=== PATIENT | male | born 1965 | race Caucasian/White ===

== ENCOUNTER 2021-07-07 10:34 | Inpatient (IN) | payer OTHER ==
[2021-07-07 11:38] LABS: Urine Blood Trace-intact (Negative); Urine Glucose Negative (Negative); Urine Protein 2+ (Negative); Urine Specific Gravity 1.025 (1.005-1.030); Urine pH 6.5 (5.0-7.0)
[2021-07-07] MEDS ORDERED: ONDANSETRON 4 MG/2 ML VIAL ONE ×2 (12:16→12:17)
[2021-07-07] MEDS ORDERED: MORPHINE 4 MG/ML SYR ONE ×2 (12:16→15:27)
[2021-07-07 12:19] LABS: Absolute Lymphocytes (CBC) 1.7 K/uL (0.7-4.9); Basophils % 0.3 % (0-1.3); Hematocrit 45.6 % (39.6-49.0); Lymphocytes % 13.3 % (15.3-44.8); MPV 8.1 fL (7.6-11.3); RBC Red Blood Cell Count 5.53 M/uL (4.33-5.43)
--- NOTE | 2021-07-07 12:23 | RAD REPORT ---
EXAM DESCRIPTION: CTAbdomen Pelvis W Contrast - 07/07/2021 12:12 pm CLINICAL HISTORY: Abdominal pain. ABD PAIN COMPARISON: No comparisons TECHNIQUE: Biphasic CT imaging of the abdomen and pelvis was performed with 100 ml non-ionic IV cont rast. All CT scans are performed using dose optimization technique as appropriate and may include automated exposure control or mA/KV adjustment according to patient size. FINDINGS: The lung bases are clear. The liver, spleen, pancreas, adrenal glands and kidneys are within normal limits. No bowel obstruction, free air, free fluid or abscess. Moderate length of sigmoid colon in the left l ower quadrant shows moderate inflammation in several diverticula most likely representing acute diver ticulitis. No abscess is present. The appendix is normal. Small fat containing umbilical hernia. No e vidence of significant lymphadenopathy. No suspicious bony findings. IMPRESSION: Moderate left lower quadrant sigmoid acute diverticulitis suspected. No abscess is evide nt. After appropriate treatment, recommend followup colonoscopy to exclude the possibility of inflammator y mass in this region.
[2021-07-07 12:26] LABS: Albumin 4.2 g/dL (3.4-5.0); Bilirubin Direct 0.2 mg/dL (0-0.2); Bilirubin Total 0.9 mg/dL (0.2-1.0); Potassium 4.1 mmol/L (3.5-5.1); Protein, Total 8.5 g/dL (6.4-8.2)
[2021-07-07] MEDS ORDERED: CIPROFLOXACIN 400mg IV 400 MG/200 ML BAG IV ONE (12:59)
[2021-07-07] MEDS ORDERED: METRONIDAZOLE 500mg IVPB 500 MG/100 ML BAG IV ONE (12:59)
--- NOTE | 2021-07-07 14:22 | ER ---
Nurse's Notes [facility] Name: Laureano Ortiz Age: 55 yrs Sex: Male : 1965 Arrival Date: 07/07/2021 Time: 10:37 Bed 18 Private MD: Diagnosis: Diverticulitis of large intestine without perforation or abscess without bleeding Presentation: 07/07 11:05 Chief complaint: Patient states: LLQ x3 days, denies N/V/D, last BM this morning and jl7 normal. Coronavirus screen: Vaccine status: Patient reports being unvaccinated. Ebola Screen: No symptoms or risks identified at this time. Initial Sepsis Screen: Does the patient meet any 2 criteria? No. Patient's initial sepsis screen is negative. Does the patient have a suspected source of infection? No. Patient's initial sepsis screen is negative. Risk Assessment: Do you want to hurt yourself or someone else? Patient reports no desire to harm self or others. Onset of symptoms was July 05, 2021. Care prior to arrival: None. 11:05 Method Of Arrival: Ambulatory 7 11:05 Acuity: NONI 3 jl7 Triage Assessment: 11:08 General: Appears in no apparent distress. uncomfortable, Behavior is calm, cooperative, jl7 appropriate for age. Pain: Complains of pain in left lower quadrant Pain radiates to epigastric area and left upper quadrant Pain currently is 8 out of 10 on a pain scale. Neuro: Level of Consciousness is awake, alert, obeys commands, Oriented to person, place, time, situation. Cardiovascular: Patient's skin is warm and dry. Respiratory: Airway is patent Respiratory effort is even, unlabored, Respiratory pattern is regular, symmetrical. GI: Abdomen is round non-distended, Abd is soft and non tender in right upper quadrant, left upper quadrant and right lower quadrant Abdomen is tender to palpation in left lower quadrant Reports normal bowel habits, Patient currently denies constipation, diarrhea, nausea, vomiting. : Denies burning with urination, pain with urination. Derm: Skin is pink, warm \T\ dry. Historical: - Allergies: 11:08 SUCCINYLCHOLINE; jl7 - Home Meds: 11:08 None [Active]; jl7 - PMHx: 11:08 None; jl7 - PSHx: 11:08 None; jl7 - Immunization history:: Client reports having NOT received the Covid vaccine. - Social history:: Smoking status: Patient denies any tobacco usage or history of. Screenin:10 Abuse screen: Denies threats or abuse. Denies injuries from another. Nutritional jl7 screening: No deficits noted. Tuberculosis screening: No symptoms or risk factors identified. 11:30 Fall Risk IV access (20 points). Total Dhaliwal Fall Scale indicates No Risk (0-24 pts). jl7 Assessment: 11:10 General: See triage assessment. jl7 Vital Signs: 11:05 BP 148 / 84; Pulse 96; Resp 17; Temp 98.5; Pulse Ox 96% ; Weight 104.33 kg; Height 6 jl7 ft. (182.88 cm); Pain 8/10; 12:55 BP 126 / 81; Pulse 88; Resp 15; Pulse Ox 95% ; Pain 4/10; jl7 11:05 Body Mass Index 31.19 (104.33 kg, 182.88 cm) jl7 ED Course: 10:37 Patient arrived in ED. am2 10:58 Arm band placed on. aa5 11:04 Robby Chakraborty, PJ is Primary Nurse. jl7 11:08 Triage completed. jl7 11:10 Patient has correct armband on for positive identification. Placed in gown. Bed in low jl7 position. Call light in reach. Side rails up X 1. Pulse ox on. NIBP on. 11:13 Manjit Delarosa PA is PHCP. jr8 11:13 Manoj Aiken MD is Attending Physician. jr8 11:15 Initial lab(s) drawn, by vt, sent to lab. Inserted saline lock: 20 gauge in right kj1 antecubital area, using aseptic technique. Blood collected. 12:12 CT Abd/Pelvis - IV Contrast Only In Process Unspecified. EDMS 14:21 Aries Bond DO is Hospitalizing Provider. jr8 15:10 Admitting physician to see patient. jl7 18:08 No provider procedures requiring assistance completed. Patient admitted, IV remains in jl7 place. intact, No redness/swelling at site. Administered Medications: 12:27 Drug: morphine 4 mg Route: IVP; Site: right antecubital; jl7 12:45 Follow up: Response: No adverse reaction; Pain is decreased jl7 14:58 Follow up: Response: No adverse reaction jl7 12:27 Drug: Zofran (Ondansetron) 4 mg Route: IVP; Site: right antecubital; jl7 14:59 Follow up: Response: No adverse reaction jl7 12:53 Drug: Cipro (ciprofloxacin) 400 mg Volume: 200 ml; Route: IVPB; Infused Over: 60 mins; jl7 Site: right antecubital; 13:53 Follow up: Response: No adverse reaction jl7 13:53 Follow up: Response: No adverse reaction; IV Status: Completed infusion jl7 12:53 Drug: Flagyl (metroNIDAZOLE) 500 mg Volume: 100 ml; Route: IVPB; Rate: 200 ml/hr; jl7 Infused Over: 30 mins; Site: right antecubital; 13:22 Follow up: Response: No adverse reaction; IV Status: Completed infusion jl7 15:00 Drug: morphine 4 mg Route: IVP; Site: right antecubital; jl7 15:30 Follow up: Response: No adverse reaction; Pain is decreased jl7 Outcome: 14:21 Decision to Hospitalize by Provider. jr8 18:08 Admitted to Tele accompanied by tech, via wheelchair, room 211, with chart, Report jl7 called to PJ Fish 18:08 Condition: stable 18:08 Discharge instructions given to patient, Instructed on the need for admit, Demonstrated understanding of instructions. 18:47 Patient left the ED. jl7 Signatures: Dispatcher [employer] EDMS Meeta Hendrix RN RN aa5 Manjit Delarosa PA PA jr8 Robby Chakraborty RN RN jl7 Di Magdaleno am2 Nichole Soto kj1 Corrections: (The following items were deleted from the chart) 11:09 11:08 Allergies: No Known Allergies; jl7 jl7 11:12 11:05 Acuity: NONI 2 jl7 jl7 15:17 11:50 morphine 4 mg IVP in right antecubital jl7 jl7
--- NOTE | 2021-07-07 14:22 | EDPHYS ---
Physician Documentation [facility] Name: Laureano Ortiz Age: 55 yrs Sex: Male : 1965 Arrival Date: 07/07/2021 Time: 10:37 Bed 18 Private MD: ED Physician Manoj Aiken HPI: 07/07 12:12 This 55 yrs old Male presents to ER via Ambulatory with complaints of LLQ abd jr8 pain. 12:12 The patient presents with abdominal pain in the left lower quadrant. Onset: The jr8 symptoms/episode began/occurred gradually, 2 day(s) ago, and became worse. The symptoms radiate to the left flank. Associated signs and symptoms: Pertinent positives: fever. The symptoms are described as shooting. Modifying factors: The symptoms are alleviated by nothing, the symptoms are aggravated by movement. Severity of pain: At its worst the pain was moderate in the emergency department the pain is unchanged. The patient has not experienced similar symptoms in the past. The patient has not recently seen a physician. Historical: - Allergies: 11:08 SUCCINYLCHOLINE; jl7 - Home Meds: 11:08 None [Active]; jl7 - PMHx: 11:08 None; jl7 - PSHx: 11:08 None; jl7 - Immunization history:: Client reports having NOT received the Covid vaccine. - Social history:: Smoking status: Patient denies any tobacco usage or history of. ROS: 12:12 Eyes: Negative for injury, pain, redness, and discharge, ENT: Negative for injury, jr8 pain, and discharge, Neck: Negative for injury, pain, and swelling, Cardiovascular: Negative for chest pain, palpitations, and edema, Respiratory: Negative for shortness of breath, cough, wheezing, and pleuritic chest pain, Back: Negative for injury and pain, MS/Extremity: Negative for injury and deformity, Skin: Negative for injury, rash, and discoloration, Neuro: Negative for headache, weakness, numbness, tingling, and seizure. 12:12 Constitutional: Positive for fever. 12:12 Abdomen/GI: Positive for abdominal pain, Negative for nausea, vomiting, and diarrhea, constipation, hematemesis, black/tarry stool, rectal pain, rectal bleeding, bowel incontinence. Exam: 12:12 Constitutional: This is a well developed, well nourished patient who is awake, alert, jr8 and in no acute distress. Cardiovascular: Regular rate and rhythm with a normal S1 and S2. No gallops, murmurs, or rubs. Normal PMI, no JVD. No pulse deficits. Respiratory: Lungs have equal breath sounds bilaterally, clear to auscultation and percussion. No rales, rhonchi or wheezes noted. No increased work of breathing, no retractions or nasal flaring. Back: No spinal tenderness. No costovertebral tenderness. Full range of motion. Skin: Warm, dry with normal turgor. Normal color with no rashes, no lesions, and no evidence of cellulitis. MS/ Extremity: Pulses equal, no cyanosis. Neurovascular intact. Full, normal range of motion. Neuro: Awake and alert, GCS 15, oriented to person, place, time, and situation. Cranial nerves II-XII grossly intact. Motor strength 5/5 in all extremities. Sensory grossly intact. Cerebellar exam normal. Normal gait. 12:12 Abdomen/GI: Inspection: obese Bowel sounds: active, all quadrants, Palpation: soft, in all quadrants, moderate abdominal tenderness, in the anterior aspect of left lateral abdomen and left lower quadrant, mass, is not appreciated, rebound tenderness, is not appreciated, voluntary guarding, is not appreciated, involuntary guarding, is not appreciated, no appreciated organomegaly, Indicators: McBurney's point is not tender, Salas's sign is negative, Liver: tenderness, is not appreciated. Vital Signs: 11:05 BP 148 / 84; Pulse 96; Resp 17; Temp 98.5; Pulse Ox 96% ; Weight 104.33 kg; Height 6 jl7 ft. (182.88 cm); Pain 8/10; 12:55 BP 126 / 81; Pulse 88; Resp 15; Pulse Ox 95% ; Pain 4/10; jl7 11:05 Body Mass Index 31.19 (104.33 kg, 182.88 cm) jl7 MDM: 11:14 Patient medically screened. jr8 14:13 Data reviewed: vital signs, nurses notes, lab test result(s), radiologic studies, CT jr8 scan. Data interpreted: Pulse oximetry: on room air is 95 %. Interpretation: normal. Counseling: I had a detailed discussion with the patient and/or guardian regarding: the historical points, exam findings, and any diagnostic results supporting the discharge/admit diagnosis, lab results, radiology results, the need for further work-up and treatment in the hospital. 07/07 11:14 Order name: Basic Metabolic Panel; Complete Time: 13:00 [facility] 07/07 11:14 Order name: CBC with Diff; Complete Time: 12:20 jr8 07/07 11:14 Order name: Hepatic Function; Complete Time: 13:00 [facility] 07/07 11:14 Order name: Lipase; Complete Time: 13:00 [facility] 07/07 11:38 Order name: Urine Dipstick-Ancillary; Complete Time: 11:48 EDMS 07/07 14:58 Order name: COVID-19 : Document "Date of Symptom Onset" if Symptomatic. [facility] 07/07 15:40 Order name: Blood Culture [facility] 07/07 16:06 Order name: Creatine Phosphokinase; Complete Time: 17:37 EDMS 07/07 16:06 Order name: Basic Metabolic Panel [facility] 07/07 16:06 Order name: Basic Metabolic Panel [facility] 07/07 16:06 Order name: CBC with Automated Diff [facility] 07/07 16:06 Order name: CBC with Automated Diff [facility] 07/07 16:06 Order name: Protime (+INR) [facility] 07/07 16:06 Order name: Protime (+INR) [facility] 07/07 11:14 Order name: IV Saline Lock; Complete Time: 11:48 [facility] 07/07 11:14 Order name: Labs collected and sent; Complete Time: 11:48 [facility] 07/07 11:14 Order name: Urine Dipstick-Ancillary (obtain specimen); Complete Time: 11:48 [facility] 07/07 11:48 Order name: CT Abd/Pelvis - IV Contrast Only; Complete Time: 12:23 8 07/07 16:07 Order name: Urinalysis [facility] 07/07 17:27 Order name: SARS-COV-2 RT PCR; Complete Time: 17:33 EDMS Administered Medications: 12:27 Drug: morphine 4 mg Route: IVP; Site: right antecubital; jl7 12:45 Follow up: Response: No adverse reaction; Pain is decreased jl7 14:58 Follow up: Response: No adverse reaction jl7 12:27 Drug: Zofran (Ondansetron) 4 mg Route: IVP; Site: right antecubital; jl7 14:59 Follow up: Response: No adverse reaction jl7 12:53 Drug: Cipro (ciprofloxacin) 400 mg Volume: 200 ml; Route: IVPB; Infused Over: 60 mins; jl7 Site: right antecubital; 13:53 Follow up: Response: No adverse reaction jl7 13:53 Follow up: Response: No adverse reaction; IV Status: Completed infusion jl7 12:53 Drug: Flagyl (metroNIDAZOLE) 500 mg Volume: 100 ml; Route: IVPB; Rate: 200 ml/hr; jl7 Infused Over: 30 mins; Site: right antecubital; 13:22 Follow up: Response: No adverse reaction; IV Status: Completed infusion jl7 15:00 Drug: morphine 4 mg Route: IVP; Site: right antecubital; jl7 15:30 Follow up: Response: No adverse reaction; Pain is decreased jl7 Disposition: 07/08 06:42 Co-signature as Attending Physician, Manoj Aiken MD I agree with the assessment and elías plan of care. Disposition Summary: 07/07/21 14:21 Hospitalization Ordered Hospitalization Status: Inpatient Admission 8 Provider: Aries Bond 8 Location: Telemetry/[facility] (Inpatient) 8 Condition: Stable jr8 Problem: new jr8 Symptoms: have improved jr8 Bed/Room Type: [place] [address] Room Assignment: [facility] [place](07/07/21 17:11) Diagnosis - Diverticulitis of large intestine without perforation or abscess without bleeding jr8 Forms: - Medication Reconciliation Form jr8 - SBAR form jr8 Signatures: Dispatcher [employer] Celeste Knight RN RN dw Anderson, Corey, MD MD cha Roszak, Josh, PA PA jr8 Robby Chakraborty RN RN jl7 Corrections: (The following items were deleted from the chart) 07/07 11:09 11:08 Allergies: No Known Allergies; 17:11 14:21 jr8 alicia
[2021-07-07] MEDS ORDERED: ONDANSETRON 4 MG/2 ML VIAL IV PRN (16:03)
[2021-07-07] MEDS ORDERED: ACETAMINOPHEN 650MG/RECT SUPP PR PRN (16:03)
[2021-07-07] MEDS ORDERED: MORPHINE 4 MG/ML SYR IV PRN (16:21)
--- NOTE | 2021-07-07 16:24 | P.HP ---
Certification for Inpatient Patient admitted to: Observation With expected LOS: <2 Midnights Patient will require the following post-hospital care: None Practitioner: I am a practitioner with admitting privileges, knowledge of patient current condition, hospital course, and medical plan of care. Services: Services provided to patient in accordance with Admission requirements found in Title 42 Section 412.3 of the Code of Federal Regulations Patient History Date of Service: 07/07/21 Reason for admission: Abdominal pain History of Present Illness: Patient is a 55 years old male with no known past medical history who presents with complaint of left lower quadrant pain that has been ongoing for the past 2 days. Patient rated pain as 8/10 in severity and described pain as sharp in quality. Patient indicated that pain radiates to the periumbilical area and the back. Patient reports associated signs and symptoms of fever and chills. Pat ient denies any other signs and symptoms. Symptoms are aggravated by p.o. intake and relieved by nothing. Patient decided to present to the hospital due to worsening symptoms. Allergies succinylcholine Adverse Reaction (Unverified 07/07/21 16:41) Rash Home medications list reviewed: No - Past Medical/Surgical History Past Medical History: Reviewed- Non-Contributory Past Surgical History: Reviewed- Non-Contributory - Family History Father -: Other (see notes) (Diverticulitis.) Mother -: Heart disease, Hypertension, Diabetes - Social History Smoking Status: Former smoker Alcohol use: Yes CD- Drugs: No Caffeine use: Yes Place of Residence: Home Review of Systems General: Fever, Chills Eyes: Unremarkable ENT: Unremarkable Respiratory: Unremarkable Cardiovascular: Unremarkable Gastrointestinal: Abdominal Pain Genitourinary: Unremarkable Musculoskeletal: Unremarkable Integumentary: Unremarkable Neurological: Unremarkable Lymphatics: Unremarkable Physical Examination - Physical Exam General: Alert, Oriented x3 HEENT: Atraumatic, PERRLA, Mucous membr. moist/pink, EOMI, Sclerae nonicteric Neck: Supple, 2+ carotid pulse no bruit, No LAD, Without JVD or thyroid abnormality Respiratory: Clear to auscultation bilaterally, Normal air movement Cardiovascular: No edema, Regular rate/rhythm, Normal S1 S2 Capillary refill: <2 Seconds Gastrointestinal: Normal bowel sounds, Tenderness Musculoskeletal: No clubbing, No tenderness Integumentary: No rashes Neurological: Normal gait, Normal speech, Normal tone, Normal affect Lymphatics: No axilla or inguinal lymphadenopathy - Studies Laboratory Data (last 24 hrs) 07/07/21 11:10: WBC 12.90 H, Hgb 14.9, Hct 45.6, Plt Count 205 07/07/21 11:10: Sodium 137, Potassium 4.1, BUN 11, Creatinine 0.89, Glucose 115 H, Total Bilirubin 0.9, AST 25, ALT 57, Alkaline Phosphatase 84, Lipase 83 Assessment and Plan - Plan --Diverticulitis. As noted on CT abdomen.. Patient placed on antibiotics and IV hydration. Surgeon consulted. Will await further recommendations. --Acute pain. We will manage pain with current pain medication regimen. --Leukocytosis. Blood cultures pending. Continue antibiotics. --CKD 2. Baseline function is unknown. We will continue to monitor renal functions. --DVT prophylaxis with Lovenox subQ I have had discussion about advanced directives with the patient during this hospital admission. Addressed code status and or goals of care. Spent more than 30 minutes. Case discussed withpatient and nurse. The following document was completed using voice recognition software. This can produce nailer operator errors that can at times significantly distort words and phrases. Please interpret any aspect of the note that is nonsensical in light of this fact. Discharge Plan: Home Plan to discharge in: 48 Hours - Advance Directives Does patient have a Living Will: No Does patient have a Durable POA for Healthcare: No - Code Status/Comfort Care Code Status Assessed: Yes Physician Review: Patient Assessed, Agree with Above Assessment and Plan Critical Care: No
[2021-07-07 20:59] VITALS: BMI 32.0
[2021-07-07] MEDS: NA CHLORIDE 0.9% 1,000 ML IV SCH (21:41)
[2021-07-07] MEDS: CIPROFLOXACIN 400mg IV 400 MG/200 ML BAG IV SCH (21:41)
[2021-07-08] MEDS: METRONIDAZOLE 500mg IVPB 500 MG/100 ML BAG IV SCH ×3 (00:15→16:36)
[2021-07-08 05:46] LABS: Absolute Lymphocytes (CBC) 1.4 K/uL (0.7-4.9); Basophils % 0.3 % (0-1.3); Hematocrit 40.5 % (39.6-49.0); Lymphocytes % 12.2 % (15.3-44.8); MPV 7.5 fL (7.6-11.3); RBC Red Blood Cell Count 4.89 M/uL (4.33-5.43)
[2021-07-08] MEDS: NA CHLORIDE 0.9% 1,000 ML IV SCH ×3 (05:59→14:00)
[2021-07-08 06:02] LABS: Protime INR 1.11
--- NOTE | 2021-07-08 06:05 | P.PN ---
Subjective Date of Service: 07/08/21 Chief Complaint: Abdominal pain Subjective: Improving, Doing well (Pain well controlled) Physical Examination - Vital Signs Temperature: 97.3 F Blood Pressure: 112/69 Pulse: 86 Respirations: 18 Pulse Ox (%): 95 - Studies Laboratory Data (last 24 hrs) 07/07/21 11:10: WBC 12.90 H, Hgb 14.9, Hct 45.6, Plt Count 205 07/07/21 11:10: Sodium 137, Potassium 4.1, BUN 11, Creatinine 0.89, Glucose 115 H, Total Bilirubin 0.9, AST 25, ALT 57, Alkaline Phosphatase 84, Lipase 83 Assessment & Plan Discharge Plan: Home Plan to discharge in: 24 Hours Physician Review Additional Text: COVID: Negative CT scan: COMPARISON: No comparisons TECHNIQUE: Biphasic CT imaging of the abdomen and pelvis was performed with 100 ml non-ionic IV contrast. All CT scans are performed using dose optimization technique as appropriate and may include automated exposure control or mA/KV adjustment according to patient size. FINDINGS: The lung bases are clear. The liver, spleen, pancreas, adrenal glands and kidneys are within normal limits. No bowel obstruction, free air, free fluid or abscess. Moderate length of sigmoid colon in the left lower quadrant shows moderate inflammation in several diverticula most likely representing acute diverticulitis. No abscess is present. The appendix is normal. Small fat containing umbilical hernia. No evidence of significant lymphadenopathy. No suspicious bony findings. IMPRESSION: Moderate left lower quadrant sigmoid acute diverticulitis suspected. No abscess is evident. After appropriate treatment, recommend followup colonoscopy to exclude the possibility of inflammatory mass in this region. Physical exam: General: Alert, Oriented x3 HEENT: Neck supple Respiratory: Clear to auscultation bilaterally, Normal air movement Cardiovascular: No edema, Regular rate/rhythm, Normal S1 S2 Capillary refill: <2 Seconds Gastrointestinal: Normal bowel sounds, improved tenderness to the left quadrant Musculoskeletal: No clubbing, No tenderness Integumentary: No rashes Neurological: Normal gait, Normal speech, Normal tone, Normal affect Lymphatics: No axilla or inguinal lymphadenopathy Impression: Acute Sigmoid Diverticulitis without abscess Plan: Patient improved. Tolerating clear liquid diet. Will advance to GI soft. Pain well controlled. Await recommendations from surgery. Likely no intervention required. Continue IV antibiotic therapy and IV fluids. If taking good oral intake and significantly improved will consider discharge as early as today if tolerating soft diet. Will discuss with surgery. Encourage ambulation. Encourage incentive spirometer. -- DVT prophylaxis: Lovenox subQ Code Status: Full code Advanced care planning: Home at discharge Time Spent Managing Pts Care (In Minutes): 55
[2021-07-08 06:08] LABS: Magnesium 2.3 mg/dL (1.8-2.4); Phosphorus 2.9 mg/dL (2.5-4.9); Potassium 4.1 mmol/L (3.5-5.1)
[2021-07-08] MEDS: ENOXAPARIN 40 MG/0.4 ML SQ SCH (08:20)
[2021-07-08] MEDS: CIPROFLOXACIN 400mg IV 400 MG/200 ML BAG IV SCH ×2 (08:20→19:50)
[2021-07-08] MEDS ORDERED: ERTAPENEM SODIUM 1 GM VIAL IVPB ONE (10:51)
[2021-07-08] MEDS ORDERED: ERTAPENEM NA 1 GM in NA CHLORIDE 0.9% 100 ML IVPB ONE (11:00)
[2021-07-08 21:09] VITALS: O2SAT 93
[2021-07-09] MEDS: METRONIDAZOLE 500mg IVPB 500 MG/100 ML BAG IV SCH ×2 (00:49→08:12)
[2021-07-09] MEDS: NA CHLORIDE 0.9% 1,000 ML IV SCH ×2 (05:55→06:00)
--- NOTE | 2021-07-09 06:01 | P.PN ---
Subjective Date of Service: 07/09/21 Chief Complaint: Abdominal pain Subjective: Improving, Doing well Physical Examination - Vital Signs Temperature: 97.8 F Blood Pressure: 115/64 Pulse: 95 Respirations: 18 Pulse Ox (%): 97 - Studies Laboratory Data (last 24 hrs) 07/08/21 05:24: Sodium 137, Potassium 4.1, BUN 11, Creatinine 0.95, Glucose 134 H, Phosphorus 2.9, Magnesium 2.3 07/08/21 05:24: PT 12.8 H, INR 1.11 Assessment & Plan Discharge Plan: Home Plan to discharge in: 24 Hours Physician Review Additional Text: COVID: Negative CT scan: COMPARISON: No comparisons TECHNIQUE: Biphasic CT imaging of the abdomen and pelvis was performed with 100 ml non-ionic IV contrast. All CT scans are performed using dose optimization technique as appropriate and may include automated exposure control or mA/KV adjustment according to patient size. FINDINGS: The lung bases are clear. The liver, spleen, pancreas, adrenal glands and kidneys are within normal limits. No bowel obstruction, free air, free fluid or abscess. Moderate length of sigmoid colon in the left lower quadrant shows moderate inflammation in several diverticula most likely representing acute diverticulitis. No abscess is present. The appendix is normal. Small fat containing umbilical hernia. No evidence of significant lymphadenopathy. No suspicious bony findings. IMPRESSION: Moderate left lower quadrant sigmoid acute diverticulitis suspected. No abscess is evident. After appropriate treatment, recommend followup colonoscopy to exclude the possibility of inflammatory mass in this region. Physical exam: General: Alert, Oriented x3 HEENT: Neck supple Respiratory: Clear to auscultation bilaterally, Normal air movement Cardiovascular: No edema, Regular rate/rhythm, Normal S1 S2 Capillary refill: <2 Seconds Gastrointestinal: Normal bowel sounds, no significant pain to the left lower quadrant Musculoskeletal: No clubbing, No tenderness Integumentary: No rashes Neurological: Normal gait, Normal speech, Normal tone, Normal affect Lymphatics: No axilla or inguinal lymphadenopathy Impression: Acute Sigmoid Diverticulitis without abscess Plan: Patient doing well at this time. Tolerating clear liquid diet. No significant abdominal pain noted. If tolerates soft diet will plan for discharge today on oral antibiotic therapy and follow-up with surgery within 1 to 2 weeks. Patient will need colonoscopy in 4 to 6 weeks. Education on diverticulitis provided. -- DVT prophylaxis: Lovenox subQ Code Status: Full code Advanced care planning: Home at discharge Time Spent Managing Pts Care (In Minutes): 55
[2021-07-09 06:08] LABS: Absolute Lymphocytes (CBC) 1.7 K/uL (0.7-4.9); Basophils % 0.5 % (0-1.3); Hematocrit 38.9 % (39.6-49.0); Lymphocytes % 26.2 % (15.3-44.8); MPV 7.4 fL (7.6-11.3); RBC Red Blood Cell Count 4.68 M/uL (4.33-5.43)
[2021-07-09 06:21] LABS: Albumin 3.2 g/dL (3.4-5.0); BUN Blood Urea Nitrogen 8 mg/dL (7-18); Bicarbonate 27 mmol/L (21-32); Glucose Level 109 mg/dL (74-106); Magnesium 2.3 mg/dL (1.8-2.4); Potassium 3.9 mmol/L (3.5-5.1); Sodium Level 141 mmol/L (136-145)
[2021-07-09 06:30] LABS: ALT/SGPT 33 U/L (12-78); AST/SGOT 14 U/L (15-37); Alkaline Phosphatase 76 U/L (45-117); Bilirubin Total 0.4 mg/dL (0.2-1.0); Protein, Total 7.1 g/dL (6.4-8.2)
[2021-07-09] MEDS: ENOXAPARIN 40 MG/0.4 ML SQ SCH (08:11)
[2021-07-09] MEDS: CIPROFLOXACIN 400mg IV 400 MG/200 ML BAG IV SCH (08:12)
[2021-07-09 08:54] VITALS: BP 115/64; TEMP 97.8
--- NOTE | 2021-07-09 08:58 | P.DS ---
Admission Date: 07/08/21 Discharge Date: 07/09/21 Primary Care Provider: none Disposition: ROUTINE DISCHARGE Discharge Condition: GOOD Reason for Admission: Abdominal pain Consultations: Surgery-Dr. Iyer Procedures: COVID: Negative CT scan: COMPARISON: No comparisons TECHNIQUE: Biphasic CT imaging of the abdomen and pelvis was performed with 100 ml non-ionic IV contrast. All CT scans are performed using dose optimization technique as appropriate and may include automated exposure control or mA/KV adjustment according to patient size. FINDINGS: The lung bases are clear. The liver, spleen, pancreas, adrenal glands and kidneys are within normal limits. No bowel obstruction, free air, free fluid or abscess. Moderate length of sigmoid colon in the left lower quadrant shows moderate inflammation in several diverticula most likely representing acute diverticulitis. No abscess is present. The appendix is normal. Small fat containing umbilical hernia. No evidence of significant lymphadenopathy. No suspicious bony findings. IMPRESSION: Moderate left lower quadrant sigmoid acute diverticulitis suspected. No abscess is evident. After appropriate treatment, recommend followup colonoscopy to exclude the possibility of inflammatory mass in this region. Medical Problem List: Acute Sigmoid Diverticulitis without abscess Brief History of Present Illness: 55-year-old female presented to the emergency room with left lower quadrant abdominal pain for over 2 days. Pain was severe in nature. Patient had some mild fever and chills. Patient was evaluated in the emergency room. Patient found to have sigmoid diverticulitis without abscess. Patient was admitted for treatment. Hospital Course: Patient presented with abdominal pain secondary to acute sigmoid diverticulitis without abscess. Patient required hospitalization and treatment. Patient received IV fluids, IV pain medication and IV antibiotic therapy. Patient was seen and evaluated by surgery. No surgical intervention was required. His diet was advanced. Patient did well during the course of his stay. At discharge patient will continue with Cipro 500 mg 1 pill twice daily and Flagyl 500 mg 3 times a day for 10 days. A limited supply of tramadol 50 mg 1 pill twice daily as needed for pain will be provided. Patient may take Tylenol or ibuprofen [id number] for pain as well. Education on diverticulitis provided. Recommend follow-up with PCP in 1 week to follow-up his hospitalization and continue his care. Recommend follow-up with surgery in 1 to 2 weeks to follow- up his hospitalization. Patient will require colonoscopy in 6 to 8 weeks to monitor and evaluate his diverticulitis further. Vital Signs/Physical Exam: Temp Pulse Resp BP Pulse Ox 97.8 F 95 H 18 115/64 97 07/09/21 08:53 07/09/21 08:53 07/09/21 08:53 07/09/21 08:53 07/09/21 08:53 General: Alert, In no apparent distress, Oriented x3, Cooperative HEENT: Atraumatic Neck: Supple Respiratory: Clear to auscultation bilaterally, Normal air movement Cardiovascular: Normal pulses, Regular rate/rhythm Gastrointestinal: Normal bowel sounds, No ascites, No tenderness, No masses, No rebound, No guarding Musculoskeletal: No warmth Integumentary: No tenderness/swelling Neurological: Normal speech, Normal strength at 5/5 x4 extr, Normal tone Laboratory Data at Discharge: WBC 6.40 K/uL (4.3-10.9) D 07/09/21 05:31 Hgb 12.8 g/dL (13.6-17.9) L 07/09/21 05:31 Hct 38.9 % (39.6-49.0) L 07/09/21 05:31 Plt Count 192 K/uL (152-406) 07/09/21 05:31 PT 12.8 SECONDS (9.5-12.5) H 07/08/21 05:24 INR 1.11 07/08/21 05:24 Sodium 141 mmol/L (136-145) 07/09/21 05:31 Potassium 3.9 mmol/L (3.5-5.1) 07/09/21 05:31 BUN 8 mg/dL (7-18) 07/09/21 05:31 Creatinine 0.76 mg/dL (0.55-1.3) 07/09/21 05:31 Glucose 109 mg/dL (74-106) H 07/09/21 05:31 Phosphorus 2.9 mg/dL (2.5-4.9) 07/08/21 05:24 Magnesium 2.3 mg/dL (1.8-2.4) 07/09/21 05:31 Total Bilirubin 0.4 mg/dL (0.2-1.0) 07/09/21 05:31 AST 14 U/L (15-37) L 07/09/21 05:31 ALT 33 U/L (12-78) 07/09/21 05:31 Alkaline Phosphatase 76 U/L (45-117) 07/09/21 05:31 Lipase 83 U/L (73-393) 07/07/21 11:10 Home Medications: Ciprofloxacin HCl [Cipro 500 MG Tablet] 500 mg PO BID #20 tab 07/09/21 Tramadol HCl [Ultram] 50 mg PO BID PRN #10 tablet 07/09/21 metroNIDAZOLE [Flagyl] 500 mg PO Q8H #30 tablet 07/09/21 New Medications: Ciprofloxacin HCl [Cipro 500 MG Tablet] 500 mg PO BID #20 tab metroNIDAZOLE [Flagyl] 500 mg PO Q8H #30 tablet Tramadol HCl [Ultram] 50 mg PO BID PRN #10 tablet PRN Reason: Pain Scale 2-4 (Mild) Physician Discharge Instructions: Patient presented with abdominal pain secondary to acute sigmoid diverticulitis without abscess. Patient required hospitalization and treatment. Patient received IV fluids, IV pain medication and IV antibiotic therapy. Patient was seen and evaluated by surgery. No surgical intervention was required. His diet was advanced. Patient did well during the course of his stay. At discharge patient will continue with Cipro 500 mg 1 pill twice daily and Flagyl 500 mg 3 times a day for 10 days. A limited supply of tramadol 50 mg 1 pill twice daily as needed for pain will be provided. Patient may take Tylenol or ibuprofen [id number] for pain as well. Education on diverticulitis provided. Recommend follow-up with PCP in 1 week to follow-up his hospitalization and continue his care. Recommend follow-up with surgery in 1 to 2 weeks to follow- up his hospitalization. Patient will require colonoscopy in 6 to 8 weeks to monitor and evaluate his diverticulitis further. Diet: AHA Activity: Ad dragan Followup: NONE,NONE [Primary Care Provider] - Time spent managing pt's care (in minutes): 55
[2021-07-09] MEDS ORDERED: POTASSIUM CL SA 10 MEQ TAB PO ONE (09:00)
== END 2021-07-09 10:29 | disposition home or self-care (01) | DRG 392 ==
LOC: ER 10:34 → ERHOLD 16:08 → 2ND 18:08 → OBSVTOIN 07-08 15:37
PROVIDERS: ADMIT Family Medicine; ATTEND Family Medicine
DX: K57.32 Diverticulitis of large intestine without perforation or abscess without bleeding (principal); Z20.822 Contact with and (suspected) exposure to COVID-19
CPT/HCPCS: 36415; 74177; 80048; 80053; 80076; 81003; 82550; 82565; 83690; 83735; 84100; 85025; 85610; 87040; 96365; 96368; 96375; 99285; G0378; J0744; J1335; J1650; J2405; J7030; Q9967; U0003